=== PATIENT | female | born 1980 | race Caucasian/White ===

== ENCOUNTER 2019-07-01 08:24 | Emergency (ER) | payer BC, OTHER ==
[~2019-07-01] VITALS: Ht 172.7 cm; Wt 70.3 kg
[2019-07-01] MEDS ORDERED: diphenhydrAMINE 50 mg/ml inj IV ONE (09:45)
[2019-07-01] MEDS ORDERED: proCHLORperazine 10 MG/2 ml inj IV ONE (09:45)
[2019-07-01] MEDS ORDERED: normal saline 1000ML IV soln IVB ONE ×2 (09:45)
[2019-07-01] MEDS ORDERED: bacitracin 15gm ointment TP ONE (10:00)
[2019-07-01 12:08] VITALS: BP 115/79
--- NOTE | 2019-07-01 12:09 | NUR ---
Shawn walters in [facility] - 07/01/19 at 1209 by ARISTEO PT STATES, H
--- NOTE | 2019-07-01 12:09 | NUR ---
PT STATES, HERNÁNDEZ MUCH BETTER BUT NECK AND SHOULDERS AT A PAIN OF 7/10. C/O STIFFNESS AND ACHY IN NECK.
== END 2019-07-01 12:45 | disposition home or self-care (01) ==
LOC: ER 08:32
DX: G44.209 Tension-type headache, unspecified, not intractable (principal); R05 Cough; R50.9 Fever, unspecified; H53.149 Visual discomfort, unspecified; M79.18 Myalgia, other site
CPT/HCPCS: 71046; 96374; 96375; 99283; J0780; J1200; J7030